=== PATIENT | female | born 1975 | race Caucasian/White ===

== ENCOUNTER 2019-11-05 12:49 | Observation (INO) | payer BC ==
[2019-11-05] MEDS ORDERED: NORMAL SALINE 1000 ML 1,000 ML IV ONE ×3 (13:25→20:57)
--- NOTE | 2019-11-05 13:25 | ER Document Report ---
ED Medical Screen (RME) - General Chief Complaint: Abdominal Pain Stated Complaint: ABDOMINAL PAIN/VOMITING Time Seen by Provider: 11/05/19 13:23 Mode of Arrival: Wheelchair Information source: Patient Notes: 44-year-old female presented to ED for epigastric pain that started 2:00 this morning. She states she has been nausea and vomiting since this time. She states the pain has not gotten any better. She is alert oriented respirations regular nonlabored but she is continuing to throw up. She states she just left the primary care doctor's office they did a urine that had leukocytes and ketones she has not had a fever. She states she did receive Phenergan IM at the primary care doctor's office and she was then sent over here for evaluation and treatment. I have greeted and performed a rapid initial assessment of this patient. A comprehensive ED assessment and evaluation of the patient, analysis of test results and completion of medical decision making process will be conducted by an additional ED providers. - Related Data Allergies/Adverse Reactions: ondansetron [From Zofran] Allergy (Verified 11/05/19 13:22) Physical Exam - Vital signs Vitals: Temp Pulse Resp BP Pulse Ox 97.8 F 83 20 107/62 100 11/05/19 12:59 11/05/19 12:59 11/05/19 12:59 11/05/19 12:59 11/05/19 12:59 Course - Vital Signs Vital signs: Temp Pulse Resp BP Pulse Ox 97.8 F 83 20 107/62 100 11/05/19 12:59 11/05/19 12:59 11/05/19 12:59 11/05/19 12:59 11/05/19 12:59
[2019-11-05 13:57] LABS: HEMATOCRIT 42.6 % (36.0-47.0); HEMOGLOBIN 14.3 g/dL (12.0-15.5); MEAN CORPUSCULAR HGB CONC 33.7 g/dL (32.0-36.0); MEAN CORPUSCULAR VOLUME 92 fl (80-97); PLATELET COUNT 380 10^3/uL (150-450); RED BLOOD COUNT 4.62 10^6/uL (3.72-5.28); WHITE BLOOD COUNT 14.9 10^3/uL (4.0-10.5)
[2019-11-05 13:57] LABS: APPEARANCE,URINE CLEAR; BILIRUBIN,URINE NEGATIVE (NEGATIVE); COLOR,URINE YELLOW; GLUCOSE, URINE NEGATIVE (NEGATIVE); KETONES,URINE 80 mg/dL (NEGATIVE); PROTEIN,URINE 30 mg/dL (NEGATIVE); URINE SPECIFIC GRAVITY 1.021; UROBILINOGEN,URINE NEGATIVE mg/dL (<2.0)
[2019-11-05 14:27] LABS: ALBUMIN 4.8 g/dL (3.5-5.0); ALKALINE PHOSPHATASE 89 U/L (38-126); ASPARTATE AMINO TRANSFERASE 40 U/L (14-36); BILIRUBIN,DIRECT 0.3 mg/dL (0.0-0.4); BILIRUBIN,TOTAL 0.5 mg/dL (0.2-1.3); BLOOD UREA NITROGEN 13 mg/dL (7-20); CALCIUM 10.3 mg/dL (8.4-10.2); CARBON DIOXIDE 26 mmol/L (22-30); CHLORIDE 102 mmol/L (98-107); GLUCOSE 99 mg/dL (75-110); POTASSIUM 4.2 mmol/L (3.6-5.0); TOTAL PROTEIN 8.4 g/dL (6.3-8.2)
[2019-11-05 14:36] LABS: ABSOLUTE LYMPHOCYTES# (MANUAL) 0.7 10^3/uL (0.5-4.7); ABSOLUTE MONOCYTES # (MANUAL) 0.4 10^3/uL (0.1-1.4); BASOPHILS % (MANUAL) 0 % (0-2); EOSINOPHILS % (MANUAL) 0 % (0-6); LYMPHOCYTES % (MANUAL) 5 % (13-45); MONOCYTES % (MANUAL) 3 % (3-13); SEGMENTED NEUTROPHILS % (MAN) 92 % (42-78); TOTAL CELLS COUNTED 100
[2019-11-05 14:37] LABS: PLATELET COMMENT ADEQUATE; RBC MORPHOLOGY COMMENT NORMO-CYTIC/CHROMIC; TOXIC GRANULATION SLIGHT; TOXIC VACUOLATION PRESENT
[2019-11-05 14:40] LABS: ANION GAP 12 (5-19)
--- NOTE | 2019-11-05 15:15 | ER Document Report ---
ED GI/ - General Chief Complaint: Nausea/Vomiting Stated Complaint: ABDOMINAL PAIN/VOMITING Time Seen by Provider: 11/05/19 13:23 Mode of Arrival: Wheelchair Notes: CHIEF COMPLAINT: Abdominal pain and vomiting HPI: 44-year-old female with prior history of cholecystectomy presenting to the emergency department for evaluation of abdominal pain and vomiting that began around 2 AM. No fever. Patient states she also has history of kidney stones but this does not feel like a kidney stone. Patient states the pain began under the upper right ribs and she had multiple episodes of vomiting. Patient went to her PCP office, received an injection of Phenergan which did help some of the nausea but she still has nausea present. Patient states that the pain now seems to be present in the epigastric region and generally but more focal in the right lower quadrant. No history of bowel obstruction. Patient indicates that she still does have her appendix. No dysuria ROS: See HPI - all other systems were reviewed and are otherwise negative Constitutional: no fever Eyes: no drainage, no blurred vision ENT: no runny nose, no sore throat Cardiovascular: no chest pain Resp: no SOB, no cough GI: + vomiting, no diarrhea, + abdominal pain : no dysuria Integumentary: no rash Allergy: no hives Musculoskeletal: no extremity pain or swelling Neurological: no numbness/tingling, no weakness MEDICATIONS: I agree with the patient medications as charted by the RN. ALLERGIES: I agree with the allergies as charted by the RN. PAST MEDICAL HISTORY/PAST SURGICAL HISTORY: Reviewed and agree as charted by RN. SOCIAL HISTORY: Reviewed and agree as charted by RN. FAMILY HISTORY: No significant familial comorbid conditions directly related to patient complaint EXAM: Reviewed vital signs as charted by RN. CONSTITUTIONAL: Alert and oriented and responds appropriately to questions. Uncomfortable-appearing; well-nourished HEAD: Normocephalic; atraumatic EYES: PERRL; Conjunctivae clear, sclerae non-icteric ENT: normal nose; no rhinorrhea; moist mucous membranes; pharynx without lesions noted, no uvula edema or deviation, no tonsillar hypertrophy, phonation normal NECK: Supple without meningismus; non-tender; no cervical lymphadenopathy, no masses CARD: RRR; no murmurs, no clicks, no rubs, no gallops; symmetric distal pulses RESP: Normal chest excursion without splinting or tachypnea; breath sounds clear and equal bilaterally; no wheezes, no rhonchi, no rales, pulse oximetry 98% on room air not hypoxic ABD/GI: Normal bowel sounds; non-distended; soft, mild generalized tenderness on palpation more focal in the right lower quadrant, no rebound, no guarding; no palpable organomegaly or masses. BACK: The back appears normal and is non-tender to palpation, there is no CVA tenderness EXT: Normal ROM in all joints; non-tender to palpation; no cyanosis, no effusions, no edema SKIN: Normal color for age and race; warm; dry; good turgor; no acute lesions noted NEURO: Moves all extremities equally; Motor and sensory function intact PSYCH: The patient's mood and manner are appropriate. Grooming and personal hygiene are appropriate. MDM: 44-year-old female presenting for evaluation of abdominal pain and vomiting. Patient appears uncomfortable at this time. Pain initially started under the right ribs but she has history of cholecystectomy. More focal now in the right lower quadrant. Differential is large may include colitis, kidney stone, appendicitis. Will obtain CT imaging to better differentiate surgical or infectious cause - Related Data Allergies/Adverse Reactions: ondansetron [From Zofran] Allergy (Verified 11/05/19 13:22) Past Medical History - General Information source: Patient - Social History Smoking Status: Never Smoker Family History: Reviewed & Not Pertinent Patient has suicidal ideation: No Patient has homicidal ideation: No Physical Exam - Vital signs Vitals: Temp Pulse Resp BP Pulse Ox 97.8 F 83 20 107/62 100 11/05/19 12:59 11/05/19 12:59 11/05/19 12:59 11/05/19 12:59 11/05/19 12:59 Course - Re-evaluation Re-evalutation: 11/05/19 19:01 CT shows positive appendicitis. I discussed this with the patient. I called and spoke with Dr. Sawant the surgeon. He will admit and see the patient. I will order Zosyn. - Vital Signs Vital signs: Temp Pulse Resp BP Pulse Ox 97.8 F 83 20 107/62 100 11/05/19 12:59 11/05/19 12:59 11/05/19 12:59 11/05/19 12:59 11/05/19 12:59 - Laboratory Result Diagrams: 11/05/19 13:43 11/05/19 13:43 Laboratory results interpreted by me: 11/05/19 11/05/19 11/05/19 13:33 13:43 13:43 WBC 14.9 H Seg Neuts % (Manual) 92 H Lymphocytes % (Manual) 5 L Abs Neuts (Manual) 13.7 H Calcium 10.3 H AST 40 H Total Protein 8.4 H Urine Protein 30 H Urine Ketones 80 H Discharge - Discharge Clinical Impression: Acute appendicitis Qualifiers: Acute appendicitis type: with localized peritonitis Appendicitis gangrene presence: without gangrene Appendicitis perforation presence: without perforation Appendicitis abscess presence: without abscess Qualified Code(s): K35.30 - Acute appendicitis with localized peritonitis, without perforation or gangrene Condition: Stable Disposition: ADMITTED INPATIENT Admitting Provider: Surgicalist - Dr. Sawant Unit Admitted: Surgical Floor
[2019-11-05] MEDS ORDERED: MORPHINE SULFATE 10 MG/ML INJ IV ONE ×2 (15:28→18:08)
[2019-11-05] MEDS ORDERED: METOCLOPRAMIDE HCL INJ/PF 10 MG/2 ML SDV IV ONE (15:28)
[2019-11-05] MEDS ORDERED: PROCHLORPERAZINE EDISYLATE INJ 10 MG/2 ML VIAL IV ONE (18:08)
--- NOTE | 2019-11-05 18:56 | RADIOLOGY REPORT (SQ) ---
EXAM DESCRIPTION: CT ABD/PELVIS WITH IV ORAL COMPLETED DATE/TIME: 11/05/2019 6:39 pm REASON FOR STUDY: RLQ pain COMPARISON: None. TECHNIQUE: CT scan of the abdomen and pelvis performed using helical scanning technique with dynamic intravenous contrast injection. Oral contrast. Images reviewed with lung, soft tissue, and bone win dows. Reconstructed coronal and sagittal MPR images reviewed. Delayed images for evaluation of the ur inary system also acquired. All images stored on PACS. All CT scanners at this facility use dose modulation, iterative reconstruction, and/or weight based d osing when appropriate to reduce radiation dose to as low as reasonably achievable (ALARA). [facility]: Dose Right [facility]: CareDose [facility]: Dose Right [facility]: Teradose 4D [facility]: [employer] CONTRAST TYPE AND DOSE: contrast/concentration: Isovue 350.00 mg/ml; Total Contrast Delivered: 90.0 ml; Total Saline Delivered: 70.0 ml RENAL FUNCTION: BUN 13 creatinine 0.63 RADIATION DOSE: CT Rad equipment meets quality standard of care and radiation dose reduction techniq ues were employed. CTDIvol: 10.8 - 14.1 mGy. DLP: 1293 mGy-cm.. LIMITATIONS: None. FINDINGS: LOWER CHEST: No significant findings. No nodules or infiltrates. LIVER: Normal size. No masses. No dilated ducts. SPLEEN: Normal size. No focal lesions. PANCREAS: No masses. No significant calcifications. No adjacent inflammation or peripancreatic fluid collections. Pancreatic duct not dilated. GALLBLADDER: Surgically absent. ADRENAL GLANDS: No significant masses or asymmetry. RIGHT KIDNEY AND URETER: No solid masses. No significant calcifications. No hydronephrosis or hyd roureter. LEFT KIDNEY AND URETER: No solid masses. No significant calcifications. No hydronephrosis or hydr oureter. AORTA AND VESSELS: No aneurysm. No dissection. Renal arteries, SMA, celiac without stenosis. RETROPERITONEUM: No retroperitoneal adenopathy, hemorrhage or masses. BOWEL AND PERITONEAL CAVITY: No masses or inflammatory changes. No free fluid or peritoneal masses. APPENDIX: The appendix is thickened to 9 mm. There is mild kristyn appendiceal stranding. There is no abscess. There is no free air or fluid. PELVIS: 3 cm left ovarian cyst. An IUD is present in the uterus. ABDOMINAL WALL: No masses. No hernias. BONES: No significant or acute findings. OTHER: No other significant finding. IMPRESSION: Appendicitis. There does not appear to be an abscess. There is no perforation. TECHNICAL DOCUMENTATION: JOB ID: [id number] Quality ID # [id number]: Final reports with documentation of one or more dose reduction techniques (e.g., Au tomated exposure control, adjustment of the mA and/or kV according to patient size, use of iterative reconstruction technique) 2010 [employer]- All Rights Reserved Reading location - IP/workstation name: [email or web address]
[2019-11-05] MEDS ORDERED: PIPERACILLIN/TAZOBACTAM 3.375 GM VIAL IV ONE (18:57)
--- NOTE | 2019-11-05 20:51 | PDOC H&P ---
History of Present Illness Admission Date/PCP: 11/05/19 19:11 Patient complains of: Lower quadrant pain for the past 16 hours History of Present Illness: ENRICO PIERCE is a 44 year old female obese, with a history of cholecystectomy, who presents to the emergency room with a 16-hour history of right lower quadrant pain intense nausea. A CT scan abdomen pelvis was done revealing nonperforated acute appendicitis. Her white blood cell count is 14.9. Past Surgical History Past Surgical History: Reports: Section Social History Smoking Status: Never Smoker Family History Family History: Reviewed & Not Pertinent Parental Family History Reviewed: No Children Family History Reviewed: No Sibling(s) Family History Reviewed.: No Medication/Allergy Home Medications: Dextroamphetamine/Amphetamine [Adderall 10 mg Tablet] 10 mg PO DAILY 11/05/19 Sumatriptan Succinate [Imitrex 50 mg Tablet] 50 mg PO ASDIR PRN 11/05/19 Allergies/Adverse Reactions: ondansetron [From Zofran] Allergy (Verified 11/05/19 13:22) Physical Exam Vital Signs: Temp Pulse Resp BP Pulse Ox 99.6 F 90 20 116/73 97 11/05/19 20:35 11/05/19 19:45 11/05/19 19:45 11/05/19 19:45 11/05/19 19:45 Intake & Output 11/04/19 11/05/19 11/06/19 06:59 06:59 06:59 Intake Total 1000 Balance 1000 Weight 78.925 kg General appearance: PRESENT: mild distress, obese, well-developed Head exam: PRESENT: atraumatic Eye exam: PRESENT: EOMI Mouth exam: PRESENT: dry mucosa, neck supple Neck exam: PRESENT: full ROM Respiratory exam: PRESENT: clear to auscultation yamilka Cardiovascular exam: PRESENT: RRR GI/Abdominal exam: PRESENT: hypoactive bowel sounds, rebound - In the right lower quadrant, soft, tenderness - Right lower quadrant Rectal exam: PRESENT: deferred Extremities exam: PRESENT: full ROM Musculoskeletal exam: PRESENT: full ROM Neurological exam: PRESENT: alert, awake, CN II-XII grossly intact Psychiatric exam: PRESENT: appropriate affect Skin exam: PRESENT: warm Results Laboratory Results: 11/05/19 13:43 11/05/19 13:43 11/05/19 11/05/19 11/05/19 13:33 13:43 13:43 WBC 14.9 H RBC 4.62 Hgb 14.3 Hct 42.6 MCV 92 MCH 31.0 MCHC 33.7 RDW 13.0 Plt Count 380 Seg Neutrophils % Not Reportable Sodium 140.3 Potassium 4.2 Chloride 102 Carbon Dioxide 26 Anion Gap 12 BUN 13 Creatinine 0.63 Est GFR ( Amer) > 60 Glucose 99 Calcium 10.3 H Total Bilirubin 0.5 AST 40 H Alkaline Phosphatase 89 Total Protein 8.4 H Albumin 4.8 Lipase 71.0 Serum HCG, Qual Urine Color YELLOW Urine Appearance CLEAR Urine pH 6.0 Ur Specific [place] 1.021 Urine Protein 30 H Urine Glucose (UA) NEGATIVE Urine Ketones 80 H Urine Blood NEGATIVE Urine RBC (Auto) 2 11/05/19 13:43 WBC RBC Hgb Hct MCV MCH MCHC RDW Plt Count Seg Neutrophils % Sodium Potassium Chloride Carbon Dioxide Anion Gap BUN Creatinine Est GFR ( Amer) Glucose Calcium Total Bilirubin AST Alkaline Phosphatase Total Protein Albumin Lipase Serum HCG, Qual NEGATIVE Urine Color Urine Appearance Urine pH Ur Specific [place] Urine Protein Urine Glucose (UA) Urine Ketones Urine Blood Urine RBC (Auto) Impressions: Abdomen/Pelvis CT 11/05/19 00:00 IMPRESSION: Appendicitis. There does not appear to be an abscess. There is no perforation. Assessment & Plan - Diagnosis (1) Acute appendicitis Qualifiers: Acute appendicitis type: with localized peritonitis Appendicitis gangrene presence: without gangrene Appendicitis perforation presence: without perforation Appendicitis abscess presence: without abscess Qualified Code(s) : K35.30 - Acute appendicitis with localized peritonitis, without perforation or gangrene Is this a current diagnosis for this admission?: Yes - Plan Summary Plan Summary: Assessment: Right lower quadrant pain Leukocytosis of 14.9 CT scan abdomen pelvis significant for acute nonperforated appendicitis Physical exam significant for right lower quadrant pain Plan: Laparoscopic appendectomy possible open Procedure, risks, benefits, complications, alternatives, explained to the patient, her questions answered, she decides to proceed tonight N.p.o. IV fluids (normal saline 1 L bolus then 125 mL/h) Zosyn 3.375 g IV piggyback x1
[2019-11-06] MEDS ORDERED: HYDROMORPHONE HCL INJ/PF 2 MG/ML AMPULE ONE (00:09)
[2019-11-06] MEDS ORDERED: KETOROLAC TROMETHAMINE 60 MG/2 ML SDV ONE (00:09)
[2019-11-06] MEDS ORDERED: MIDAZOLAM 2 MG/2 ML INJ ONE (00:09)
[2019-11-06] MEDS ORDERED: FENTANYL CITRATE INJ/PF 100 MCG/2 ML AMPUL ONE (00:09)
[2019-11-06] MEDS ORDERED: ONDANSETRON HCL INJ/PF 4 MG/2 ML SDV ONE (00:10)
[2019-11-06] MEDS ORDERED: PROPOFOL INJ 200 MG/20 ML VIAL IV ONE (00:10)
[2019-11-06] MEDS ORDERED: DEXAMETHASONE SOD PHOSPHATE INJ 4 MG/1 ML VIAL ONE (00:10)
[2019-11-06] MEDS ORDERED: BUPIVACAINE INJ/PF LIPOSOME/PF 266 MG/20 ML SDV ONE (00:19)
[2019-11-06] MEDS ORDERED: ACETAMINOPHEN 1,000 MG/100 ML RTUPB IV ONE (00:27)
[2019-11-06] MEDS ORDERED: OXYCODONE-ACETAMINOPHEN 5-325 MG TABLET PO PRN ×3 (00:49→11:39)
[2019-11-06] MEDS ORDERED: PROMETHAZINE HCL INJ 25 MG/1 ML VIAL IV PRN ×2 (00:49)
[2019-11-06] MEDS ORDERED: FENTANYL CITRATE INJ/PF 100 MCG/2 ML AMPUL IV PRN ×3 (00:49)
[2019-11-06] MEDS ORDERED: MORPHINE SULFATE 10 MG/ML INJ IV PRN (00:49)
[2019-11-06] MEDS ORDERED: MEPERIDINE HCL/PF INJ 25 MG/1 ML DISP.SYRIN IV PRN (00:49)
[2019-11-06] MEDS ORDERED: DIPHENHYDRAMINE HCL 50 MG/ML VIAL IV PRN (00:49)
[2019-11-06] MEDS ORDERED: ONDANSETRON HCL INJ/PF 4 MG/2 ML SDV IV PRN (01:24)
[2019-11-06] MEDS ORDERED: NORMAL SALINE 1000 ML 1,000 ML IV PRN (01:24)
--- NOTE | 2019-11-06 01:24 | Operative Report ---
Nonrecallable Operative Report DATE OF SURGERY: 11/06/19 PREOPERATIVE DIAGNOSIS: Acute appendicitis nonperforated POSTOPERATIVE DIAGNOSIS: Same OPERATION: Laparoscopic appendectomy SURGEON: MILAGRO MENDIOLA ANESTHESIA: Local - 20 mL's of Exparel TISSUE REMOVED OR ALTERED: Appendix COMPLICATIONS: None ESTIMATED BLOOD LOSS: Less than 10 mL INTRAOPERATIVE FINDINGS: Acutely inflamed, nonperforated appendicitis PROCEDURE: The procedure was done in the operating room. The patient was placed in a supine position, general anesthesia induced by endotracheal intubation, the abdomen was prepped and draped in usual fashion. An incision was made just above the umbilicus with a #15 blade, the skin was tented with towel clips and a 5 mm port with Optiview adapter and scope were inserted through the abdominal wall into the peritoneal cavity. After they CO2 pneumoperitoneum was obtained, under direct visualization a 5 mm report was inserted in the right lateral quadrant of the abdomen following skin incision. The scope was removed from the umbilical port and inserted into the right side port. The 5 mm umbilical port was removed and replaced with a 12 mm port, while the 5 mm port was inserted in left lower quadrant of the abdomen following skin incision. The patient was placed in steep Trendelenburg position with the right side elevated. The appendix was then identified by tracing the anterior tenia of the cecum, the appendix was then found, elevated, and stretched. The mesentery of the appendix was divided with the LigaSure. The appendix was found to be non-perforated. The appendix was stapled at the base with an Endo REMY stapler, extracted from the peritoneal cavity with an Endobag through the umbilical port. The pneumoperitoneum was then re-established, the stapled line was examined and found to be intact. The right lower quadrant was then irrigated with normal saline until clear. The umbilical fascia defect was closed with a [id number]-mo-qhmis 0 Vicryl suture, placed with a fascia closure device under direct visualization and left untied. All instruments were removed, the pneumoperitoneum was released, and all ports were removed. The umbilical fascial defect was closed with the previously placed [id number] 0 Vicryl suture, all skin incisions were closed with a 4-0 PDS running subcuticular suture, and covered with Dermabond. The patient tolerated the procedure well, was extubated, and transferred to the recovery room in satisfactory conditions.
[2019-11-06] MEDS ORDERED: PIPERACILLIN/TAZOBACTAM 3.375 GM VIAL IV ONE ×2 (01:36→02:52)
[2019-11-06] MEDS ORDERED: PIPERACILLIN/TAZOBACTAM 3.375 GM VIAL IV PRN (02:05)
[2019-11-06] MEDS ORDERED: FAMOTIDINE INJ/PF 20 MG/2 ML SDV IV ONE (02:15)
[2019-11-06] MEDS ORDERED: KETOROLAC TROMETHAMINE INJ/PF 30 MG/1 ML SDV IV ONE (02:15)
[2019-11-06] MEDS: PIPERACILLIN SODIUM/TAZOBACTAM 3.375 GM in NORMAL SALINE 100 ML IV SCH ×3 (02:56→14:12)
[2019-11-06] MEDS: KETOROLAC TROMETHAMINE INJ/PF 30 MG/1 ML SDV IV SCH ×3 (05:32→17:13)
[2019-11-06] MEDS: DOCUSATE SODIUM 100 MG CAPSULE PO SCH ×2 (09:55→17:06)
[2019-11-06] MEDS ORDERED: ENOXAPARIN SODIUM INJ 40 MG/0.4 ML DISP.SYRIN SUBCUT SCH (10:00)
[2019-11-06] MEDS ORDERED: FAMOTIDINE INJ/PF 20 MG/2 ML SDV IV SCH (10:00)
[2019-11-06] MEDS ORDERED: NEOSTIGMINE METHYLSULFATE 10 MG/10 ML VIAL ONE (10:15)
[2019-11-06] MEDS ORDERED: SUCCINYLCHOLINE CHLORIDE INJ 200 MG/10 ML VIAL ONE (10:15)
[2019-11-06] MEDS ORDERED: VECURONIUM BROMIDE INJ 10 MG VIAL IV ONE (10:15)
[2019-11-06] MEDS ORDERED: GLYCOPYRROLATE 1 MG/5 ML VIAL ONE (10:15)
--- NOTE | 2019-11-06 11:39 | PDOC PROGRESS REPORT ---
Subjective Progress Note for:: 11/06/19 Reason For Visit: ACUTE NONPERFORATED APPENDICITIS Feels better, voiding, tolerating clear liquids Physical Exam Vital Signs: Temp Pulse Resp BP Pulse Ox 97.5 F 72 17 89/50 L 94 11/06/19 09:00 11/06/19 09:00 11/06/19 09:00 11/06/19 09:00 11/06/19 09:00 Intake & Output 11/05/19 11/06/19 11/07/19 06:59 06:59 06:59 Intake Total 3800 Output Total 5 Balance 3795 Weight 84.1 kg General appearance: PRESENT: no acute distress GI/Abdominal exam: PRESENT: other - Appropriately tender; dressings dry and intact. Results Laboratory Results: 11/05/19 13:43 11/05/19 13:43 11/05/19 11/05/19 11/05/19 13:33 13:43 13:43 WBC 14.9 H RBC 4.62 Hgb 14.3 Hct 42.6 MCV 92 MCH 31.0 MCHC 33.7 RDW 13.0 Plt Count 380 Seg Neutrophils % Not Reportable Sodium 140.3 Potassium 4.2 Chloride 102 Carbon Dioxide 26 Anion Gap 12 BUN 13 Creatinine 0.63 Est GFR ( Amer) > 60 Glucose 99 Calcium 10.3 H Total Bilirubin 0.5 AST 40 H Alkaline Phosphatase 89 Total Protein 8.4 H Albumin 4.8 Lipase 71.0 Serum HCG, Qual Urine Color YELLOW Urine Appearance CLEAR Urine pH 6.0 Ur Specific [place] 1.021 Urine Protein 30 H Urine Glucose (UA) NEGATIVE Urine Ketones 80 H Urine Blood NEGATIVE Urine RBC (Auto) 2 11/05/19 13:43 WBC RBC Hgb Hct MCV MCH MCHC RDW Plt Count Seg Neutrophils % Sodium Potassium Chloride Carbon Dioxide Anion Gap BUN Creatinine Est GFR ( Amer) Glucose Calcium Total Bilirubin AST Alkaline Phosphatase Total Protein Albumin Lipase Serum HCG, Qual NEGATIVE Urine Color Urine Appearance Urine pH Ur Specific [place] Urine Protein Urine Glucose (UA) Urine Ketones Urine Blood Urine RBC (Auto) Impressions: Abdomen/Pelvis CT 11/05/19 00:00 IMPRESSION: Appendicitis. There does not appear to be an abscess. There is no perforation. Assessment & Plan - Diagnosis (1) Acute appendicitis Qualifiers: Acute appendicitis type: with localized peritonitis Appendicitis gangrene presence: without gangrene Appendicitis perforation presence: without perforation Appendicitis abscess presence: without abscess Qualified Code(s): K35.30 - Acute appendicitis with localized peritonitis, without perforation or gangrene Is this a current diagnosis for this admission?: Yes Plan: Impression: Doing well status post laparoscopic appendectomy for acute suppurative appendicitis. Recommendations: 1. Will advance to clear liquid diet 2. Hep-Lock IV . Switch to p.o. pain medication. 4. Anticipate discharge home later today. - Time Time Spent with patient: Less than 15 minutes Medications reviewed and adjusted accordingly: Yes Anticipated discharge: Home - Inpatient Certification Based on my medical assessment, after consideration of the patient's comorbidi ties, presenting symptoms, or acuity I expect that the services needed warrant INPATIENT care.: Yes I certify that my determination is in accordance with my understanding of Ming foster's requirements for reasonable and necessary INPATIENT services [42 CFR 412.3e].: Yes Medical Necessity: Need For IV Fluids
[2019-11-06 17:38] VITALS: BP 112/64
[2019-11-06] MEDS ORDERED: DOCUSATE SODIUM 100 MG CAPSULE PO SCH (18:00)
== END 2019-11-06 17:53 | disposition home or self-care (01) ==
LOC: ER 12:49 → EH 19:11 → INTOOBSV 19:11 → 4N 11-06 02:18
PROVIDERS: ATTEND Surgery
DX: K35.30 Acute appendicitis with localized peritonitis, without perforation or gangrene (principal); E66.9 Obesity, unspecified; Z90.49 Acquired absence of other specified parts of digestive tract; Z87.442 Personal history of urinary calculi
CPT/HCPCS: 96376; 99284; 96361; 96374; 96375; 36415; 83690; 84703; 85025; 80053; 81001; 88304 ×2; 74177; 00840; 44970; G0378 ×2; J2250; J1100; J1885 ×2; J3010; J3490 ×3; J2765; J2270; J2710; J1650; J0780; J0330; J2405; J7050; J7030 ×2; J2704; S0028; J2543 ×2; J0131; C9290; 840; J1170

== ENCOUNTER → 2019-12-21 | Outpatient (CLI) | payer BC ==
--- NOTE | 2019-12-21 11:04 | RADIOLOGY REPORT (SQ) ---
EXAM DESCRIPTION: CT ABD/PELVIS WITH IV ORAL COMPLETED DATE/TIME: 12/21/2019 10:20 am REASON FOR STUDY: R11.2 NAUSEA WITH VOMITING, UNSPECIFIED, R10.33 PERIUMBILICAL PAIN R11.2 NAUSEA W ITH VOMITING, UNSPECIFIED R10.33 PERIUMBILICAL PAIN COMPARISON: 11/05/2019 TECHNIQUE: CT scan of the abdomen and pelvis performed using helical scanning technique with dynamic intravenous contrast injection. Patient was given oral contrast. Images reviewed with lung, soft ti ssue, and bone windows. Reconstructed coronal and sagittal MPR images reviewed. Delayed images for ev aluation of the urinary system also acquired. All images stored on PACS. All CT scanners at this facility use dose modulation, iterative reconstruction, and/or weight based d osing when appropriate to reduce radiation dose to as low as reasonably achievable (ALARA). [facility]: Dose Right [facility]: CareDose [facility]: Dose Right [facility]: Teradose 4D [facility]: [facility] CONTRAST TYPE AND DOSE: contrast/concentration: Isovue 350.00 mg/ml; Total Contrast Delivered: 81.0 ml; Total Saline Delivered: 68.0 ml RENAL FUNCTION: None required. The patient is less than 50 years old. RADIATION DOSE: CT Rad equipment meets quality standard of care and radiation dose reduction techniq ues were employed. CTDIvol: 7.9 - 8.0 mGy. DLP: 825 mGy-cm.. LIMITATIONS: None. FINDINGS: LOWER CHEST: No significant findings. No nodules or infiltrates. LIVER: Normal size. No masses. No dilated ducts. SPLEEN: Normal size. No focal lesions. PANCREAS: No masses. No significant calcifications. No adjacent inflammation or peripancreatic fluid collections. Pancreatic duct not dilated. GALLBLADDER: Surgically absent. ADRENAL GLANDS: No significant masses or asymmetry. RIGHT KIDNEY AND URETER: No solid masses. No significant calcifications. No hydronephrosis or hyd roureter. LEFT KIDNEY AND URETER: No solid masses. No significant calcifications. No hydronephrosis or hydr oureter. AORTA AND VESSELS: No aneurysm. No dissection. Renal arteries, SMA, celiac without stenosis. RETROPERITONEUM: No retroperitoneal adenopathy, hemorrhage or masses. BOWEL AND PERITONEAL CAVITY: No masses or inflammatory changes. No free fluid or peritoneal masses. APPENDIX: Surgically absent. PELVIS: Unremarkable urinary bladder. Intrauterine device present. Cystic lesion within the left ad nexum measuring up to 2.9 cm likely dominant ovarian follicle. No free fluid. No adenopathy. ABDOMINAL WALL: No masses. No hernias. BONES: No significant or acute findings. OTHER: No other significant finding. IMPRESSION: 1. No evidence of acute intra-abdominal/pelvic process. 2. Status post cholecystectomy and appendectomy. TECHNICAL DOCUMENTATION: JOB ID: [id number] Quality ID # [id number]: Final reports with documentation of one or more dose reduction techniques (e.g., Au tomated exposure control, adjustment of the mA and/or kV according to patient size, use of iterative reconstruction technique) 2010 [employer]- All Rights Reserved Reading location - IP/workstation name: [email or web address]
== END ==
LOC: RAD 09:53
PROVIDERS: ATTEND Surgery
DX: R11.2 Nausea with vomiting, unspecified (principal); R10.33 Periumbilical pain
CPT/HCPCS: 74177